=== PATIENT | female | born 1985 | race American Indian/Alaskan Native ===

== ENCOUNTER 2018-09-02 12:17 | Day surgery (SDC) | payer OTHER ==
[2018-08-31 13:20] VITALS: BMI 26.6
[2018-09-02] MEDS ORDERED: Bupivacaine HCl 0.5% PF (10 ml) Inj ONE (14:25)
[2018-09-02] MEDS ORDERED: Midazolam 2 MG/2 ML VIAL ONE (14:43)
[2018-09-02] MEDS ORDERED: Propofol 10 mg/ml Inj (20 ML) ONE (14:43)
[2018-09-02] MEDS ORDERED: HYDROmorphone 0.5 mg/0.5 ml ISec IVP PRN ×2 (15:33→17:39)
--- NOTE | 2018-09-02 17:06 | PCM.SURG1 ---
Surgeon's Initial Post Op Note - Surgeon's Notes Surgeon: Dr. Isis Perez DPM Licensed Occupational Therapy Assistant: Dr. Daphnie Cavanaugh DPM, Dr. Lisa Jones DPM PGY-3 Type of Anesthesia: General Endo Anesthesia Administered By: Dr. Elizalde Pre-Operative Diagnosis: left 5th metatarsal fracture Operative Findings: see dictation Post-Operative Diagnosis: same Operation Performed: left 5th metatarsal ORIF Specimen/Specimens Removed: none Estimated Blood Loss: EBL {In ML}: 10 Blood Products Given: N/A Drains Used: No Drains Post-Op Condition: Good Date of Surgery/Procedure: 09/02/18 Time of Surgery/Procedure: 17:06
[2018-09-02] MEDS ORDERED: Oxycodone/Acetaminophen 5/325 mg Tab PO PRN ×2 (17:07)
[2018-09-02 18:25] VITALS: BP 120/60; PULSE 66; RESP 18; TEMP 97; O2SAT 100
--- NOTE | 2018-09-05 14:54 | OP ---
PROCEDURE DATE: 09/02/2018 PREOPERATIVE DIAGNOSIS: Left fifth metatarsal fracture. POSTOPERATIVE DIAGNOSIS: Left fifth metatarsal fracture. PROCEDURES PERFORMED: Left fifth metatarsal ORIF. SURGEONS: Isis Perez DPM and Daphnie Cavanaugh DPM ENERGY SPECIALIST: Lisa Jones DPM, PGY-3. TYPE OF ANESTHESIA: General with local injection. ANESTHESIA ADMINISTERED BY: Dr. Reyes. INDICATIONS: The patient is a 33-year-old female with the above-mentioned diagnosis. The patient sustained a left fifth metatarsal fracture in the beginning of 07/2018. She has also been walking on this fracture and it has not healed. The patient seeks surgical intervention at this time. All risks, benefits, and possible complications of proposed procedure have been explained to the patient at length. The patient verbalized understanding and wished to proceed. All questions were answered. No guarantees were given or implied. N.p.o. status was confirmed prior to bringing the patient to operating room. DESCRIPTION OF PROCEDURE: The patient was brought into the operating room and placed on the operating room table in a supine position. A well-padded pneumatic ankle tourniquet was applied to the patient's left ankle in a supramalleolar position. Once general anesthesia was achieved, the local injection consisting of 10 mL of 0.5% Marcaine plain was given in a local block fashion to the patient's left foot. The foot was then prepped and draped in the usual sterile manner and the procedure began. PROCEDURE #1: LEFT FIFTH METATARSAL ORIF: Attention was directed to the lateral aspect of the left foot where an approximately 6 cm linear longitudinal incision was made over the left fifth metatarsal shaft where the fracture was noted and marked out using fluoroscopic guidance. The incision was deepened through the subcutaneous tissue with a combination of sharp and blunt dissection. Care was taken to identify and retract all vital neurovascular structures. All bleeders were cauterized and ligated. The periosteal tissue was then sharply dissected with #15 blade and a periosteal elevator. The fracture fragment was then noted and it was curetted and reduced with phalangeal clamp. At this point, 1.25 K-wire was placed across the fracture site. Next, utilizing fluoroscopic guidance, a Synthes 2.4 six-hole plate was applied over the fracture site with a combination of 2.0 locking and cortex screw. The fracture site was noted to be reduced into anatomical alignment. A 2.7 cortical screw was also placed across the fracture site. The K-wires were then removed. The surgical site was then noted in anatomical alignment with fluoroscopic guidance. The surgical site was then irrigated with copious amounts of normal sterile saline. The fibrinous tissue was reapproximated with #3-0 and 4-0 Vicryl. The skin was reapproximated with #4-0 Prolene. Postoperative injection consisting of 10 mL of 0.5% Marcaine was given. Postoperative dressings included Adaptic, 4x4s, Sabiha, and a well-padded bivalve cast. POSTOPERATIVE CONDITION: The patient tolerated the procedure and anesthesia well with no apparent complications or complaints. The patient was escorted from the operating room to the recovery room with vital signs stable and neurovascular structures intact. The patient will follow up with Dr. Perez in office in outpatient basis and will remain nonweightbearing. Lisa Jones DPM Isis Perez DPM
== END 2018-09-02 18:50 | disposition home or self-care (01) ==
LOC: C.SDS 12:17
PROVIDERS: ATTEND Podiatrist Sports Medicine
DX: S92.352A Displaced fracture of fifth metatarsal bone, left foot, initial encounter for closed fracture (principal)
CPT/HCPCS: 28485; J2250; J2704; J3010